=== PATIENT | female | born 1985 | race Caucasian/White ===

== ENCOUNTER 2022-02-18 17:42 | Emergency (ER) | payer OTHER, MEDICAID, SELFPAY ==
[2022-02-18 17:47] VITALS: BP 141/77; PULSE 82; RESP 16; TEMP 37.1; O2SAT 98; BMI 35.6
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
[2022-02-18] MEDS: HYDROcodone-acetaminophen 5-325 mg Tablet 1 TAB PO (18:15)
[2022-02-18 18:22] VITALS: BP 156/101; PULSE 68; RESP 18; O2SAT 99
== END 2022-02-18 18:23 | disposition home or self-care (01) ==
PROVIDERS: Emergency Provider Emergency Medicine
DX: S40.022A Contusion of left upper arm, initial encounter (principal); V89.2XXA Person injured in unspecified motor-vehicle accident, traffic, initial encounter
CPT/HCPCS: 73030; 73060; 99283

== ENCOUNTER 2022-02-24 10:25 | Emergency (ER) | payer MEDICAID, SELFPAY ==
[2022-02-24 10:44] VITALS: BP 189/110; PULSE 83; TEMP 36.9; O2SAT 97; BMI 35.6
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
[2022-02-24] MEDS: ketorolac 60 mg/2 mL INJ IM (12:10)
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
[2022-02-24 13:15] VITALS: BP 144/83; RESP 16
== END 2022-02-24 13:16 | disposition home or self-care (01) ==
PROVIDERS: Emergency Provider Nurse Practitioner Family
DX: M62.838 Other muscle spasm (principal)
CPT/HCPCS: 72040; 81025; 96372; 99284; J1885

== ENCOUNTER 2022-06-08 08:54 | Outpatient (CLI) | payer MEDICAID, SELFPAY ==
--- NOTE | 2022-06-08 09:02 | XR_ITS ---
WS: [id number] Left ankle, 3 views, 06/08/2022 Clinical Data: left ankle injury Comparison: None. Findings: No fractures or dislocations are seen. The ankle mortise is normal. The talus and calcaneus are unrem arkable. No soft tissue swelling over the medial or lateral malleolus is seen. XR/XR ankle LT min 3V* [id number] Impression: Negative left ankle.
--- NOTE | 2022-06-08 09:02 | XR_ITS ---
WS: [id number] Left knee, 3 views, 06/08/2022 Clinical Data: knee pain Comparison: None. Findings: No fractures or dislocations are seen. The joint spaces are normal. The patella is intact. The soft t issues are unremarkable. XR/XR knee LT 3V* [id number] Impression: Negative left knee. Kellgren-Wenceslao Classification: grade 0 (none): definite absence of x-ray lashonda nges of osteoarthritis
== END 2022-06-08 08:55 | disposition home or self-care (01) ==
LOC: RAD 08:59
PROVIDERS: PCP Family Medicine; Visit Provider Emergency Medicine
DX: M25.562 Pain in left knee (principal)
CPT/HCPCS: 73562; 73610

== ENCOUNTER → 2022-06-14 10:55 | Outpatient (BNVA) | payer MEDICAID, SELFPAY | PROVIDERS: PCP Family Medicine; Visit Provider Family Medicine | DX: E66.9 Obesity, unspecified (principal); Z68.38 Body mass index [BMI] 38.0-38.9, adult | CPT/HCPCS: 80053; 84439; 84443; 85025 ==

== ENCOUNTER → 2022-08-10 14:00 | Outpatient (BNVA) | payer MEDICAID, SELFPAY | PROVIDERS: PCP Family Medicine; Visit Provider Obstetrics & Gynecology | DX: Z01.419 Encounter for gynecological examination (general) (routine) without abnormal findings (principal) | CPT/HCPCS: 87624 ==

== ENCOUNTER → 2023-08-06 16:43 | Outpatient (BNVA) | payer MEDICAID, SELFPAY | PROVIDERS: PCP Family Medicine; Visit Provider Family Medicine | DX: J02.9 Acute pharyngitis, unspecified (principal) | CPT/HCPCS: 87070; 87880 ==

== ENCOUNTER 2023-09-28 18:14 | Emergency (ER) | payer MEDICAID, SELFPAY ==
[2023-09-28 18:50] VITALS: BP 114/80; PULSE 110; RESP 18; TEMP 36.7; O2SAT 95; BMI 38.2
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
--- NOTE | 2023-09-28 19:53 | XRR_ITS ---
PROCEDURE INFORMATION: Exam: XR Cervical Spine Exam date and time: 09/28/2023 8:23 PM Age: 38 years old Clinical indication: Neck pain TECHNIQUE: Imaging protocol: Radiologic exam of the cervical spine. Views: 2 or 3 views. COMPARISON: CR XR cervical spine 3V* [id number] 02/24/2022 12:01 PM FINDINGS: Bones/joints: Normal. No acute fracture. Normal alignment. Similar straightening of cervical lordosis. Soft tissues: Unremarkable. Other findings: Multiple piercings. XR/XR cervical spine 3V* [id number] IMPRESSION: No acute findings.
[2023-09-28] MEDS: ketorolac 30 mg/mL INJ IM (20:55)
[2023-09-28] MEDS: orphenadrine 30 mg/mL Inj 2 mL 60 MG IM (20:55)
[2023-09-28 21:16] VITALS: BP 114/80; PULSE 110; RESP 18; TEMP 36.7; O2SAT 95
== END 2023-09-28 21:14 | disposition home or self-care (01) ==
PROVIDERS: Emergency Provider Nurse Practitioner Family; PCP Family Medicine
DX: M47.892 Other spondylosis, cervical region (principal)
CPT/HCPCS: 72040; 96372; 99284; J1885; J2360

== ENCOUNTER → 2024-05-15 09:32 | Outpatient (BNVA) | payer MEDICAID, SELFPAY | PROVIDERS: PCP Family Medicine; Visit Provider Student in an Organized Health Care Education/Training Program | DX: G56.02 Carpal tunnel syndrome, left upper limb (principal); M77.12 Lateral epicondylitis, left elbow; M25.522 Pain in left elbow; G89.29 Other chronic pain | CPT/HCPCS: 73080; 73130 ==

== ENCOUNTER 2024-06-13 10:36 | Outpatient (RCR) | payer MEDICAID, SELFPAY | END 2024-07-06 23:59 | disposition home or self-care (01) | LOC: SPT 10:36 | PROVIDERS: Visit Provider Student in an Organized Health Care Education/Training Program | DX: G89.29 Other chronic pain (principal); M77.12 Lateral epicondylitis, left elbow | CPT/HCPCS: 97110; 97161 ==

== ENCOUNTER 2024-07-07 05:00 | Outpatient (RCR) | payer MEDICAID, SELFPAY | END 2024-08-05 23:59 | disposition home or self-care (01) | LOC: SPT 05:00 | PROVIDERS: PCP Family Medicine; Visit Provider Student in an Organized Health Care Education/Training Program | DX: M25.522 Pain in left elbow (principal); G89.29 Other chronic pain | CPT/HCPCS: 97110; 97530 ==

== ENCOUNTER → 2024-07-16 11:30 | Outpatient (BNVA) | payer MEDICAID, SELFPAY | PROVIDERS: PCP Family Medicine; Visit Provider Family Medicine | DX: Z13.6 Encounter for screening for cardiovascular disorders (principal) | CPT/HCPCS: 80053; 80061; 83036; 84439; 84443; 85025 ==

== ENCOUNTER 2024-08-06 06:30 | Outpatient (RCR) | payer MEDICAID, SELFPAY | END 2024-08-23 08:57 | disposition home or self-care (01) | LOC: SPT 06:30 | PROVIDERS: PCP Family Medicine; Visit Provider Student in an Organized Health Care Education/Training Program | DX: M77.12 Lateral epicondylitis, left elbow (principal); G89.29 Other chronic pain | CPT/HCPCS: 97110 ==

== ENCOUNTER → 2024-08-22 15:59 | Outpatient (BNVA) | payer MEDICAID, SELFPAY | PROVIDERS: PCP Family Medicine; Visit Provider Nurse Practitioner Women's Health | DX: Z01.419 Encounter for gynecological examination (general) (routine) without abnormal findings (principal) | CPT/HCPCS: 87624 ==

== ENCOUNTER 2024-12-02 02:45 | Emergency (ER) | payer MEDICAID, SELFPAY ==
[2024-12-02 02:49] VITALS: BMI 42.0
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
[2024-12-02 02:57] VITALS: BP 126/87; PULSE 68; RESP 17; TEMP 36.7; O2SAT 97
--- NOTE | 2024-12-02 03:18 | XRR_ITS ---
PROCEDURE INFORMATION: Exam: XR Cervical Spine Exam date and time: 12/02/2024 3:18 AM Age: 39 years old Clinical indication: Radicular pain (radiculopathy); Cervical region; C/O left sided radicular neck pain. No injury. ; Additional info: Cervical radiculopathy, left TECHNIQUE: Imaging protocol: Radiologic exam of the cervical spine. Views: 2 or 3 views. COMPARISON: CR XR cervical spine 3V* [id number] 09/28/2023 8:23 PM FINDINGS: Bones/joints: Normal. No acute fracture. Normal alignment. Soft tissues: Unremarkable. XR/XR cervical spine 3V* [id number] IMPRESSION: No acute findings.
[2024-12-02 03:48] VITALS: RESP 17; O2SAT 99
[2024-12-02] MEDS: oxyCODONE-APAP 5-325 mg Tablet 2 TAB PO (03:48)
[2024-12-02] MEDS: orphenadrine 30 mg/mL Inj 2 mL 60 MG IM (03:48)
[2024-12-02 04:06] VITALS: BP 134/76; PULSE 65; RESP 17; TEMP 36.8; O2SAT 97
== END 2024-12-02 04:08 | disposition home or self-care (01) ==
PROVIDERS: Emergency Provider Emergency Medicine; PCP Family Medicine
DX: M54.12 Radiculopathy, cervical region (principal)
CPT/HCPCS: 72040; 96372; 99284; J1885; J2360; J9999